=== PATIENT | female | born 1980 | race Caucasian/White ===

== ENCOUNTER → 2020-10-17 | Outpatient (CLI) | payer OTHER ==
[~2020-10-17] MED LIST: AMOXICILLIN500 M1 PO; BACTRIM DS TAB1 EACH PO; DIFLUCAN150 MG PO; FLOXIN 0.3% OTIC5 ML AD; IBUPROFEN600 MG PO; IBUPROFEN800 MG PO; IRON325 M1 PO; MEDROL4 MG PO; NORCO 5-325 TA1 EACH PO; OMNICEF 300 MG300 MG PO; PYRIDIUM100 MG PO; ZOFRAN ODT 4 MG4 MG PO; ZOFRAN ODT4 MG PO
== END ==
LOC: KOH-I 15:59
DX: R05 Cough (principal)
CPT/HCPCS: 71046